=== PATIENT | female | born 1935 | race Caucasian/White ===

== ENCOUNTER → 2019-04-07 | Outpatient (CLI) | payer MEDICARE, BC ==
[2019-04-07 16:35] LABS: ALBUMIN 4.2 g/dL (3.4-4.8)
[2019-04-07 16:37] LABS: TOTAL PROTEIN 7.4 g/dL (6.2-8.1)
[2019-04-07 16:39] LABS: TOTAL BILIRUBIN 0.7 mg/dL (0.2-1.2)
[2019-04-07 17:42] LABS: HEMATOCRIT 37.7 % (37.0-47.0); HEMOGLOBIN 12.2 g/dL (12.5-16.0); MEAN CELL VOLUME 88 fl (78-100); MEAN CORPUSCULAR HEMOGLOBIN 28 pg (27-31); MEAN CORPUSCULAR HGB CONC 32 g/dL (33-37); MEAN PLATELET VOLUME 10.2 fl (7.4-10.4); PLATELET COUNT 237 K/mm3 (130-400); RED CELL DISTRIBUTION WIDTH 12.7 % (11.5-14.5); WHITE BLOOD COUNT 6.6 K/mm3 (4.8-10.8)
[2019-04-07 23:11] LABS: LYMPHOCYTE 32 % (20-51); MONOCYTE 5 % (3-10); NEUTROPHILS 53 % (42-75)
== END ==
LOC: LAB 15:37
PROVIDERS: Family Medicine
DX: Z00.00 Encounter for general adult medical examination without abnormal findings (principal); E78.5 Hyperlipidemia, unspecified; E55.9 Vitamin D deficiency, unspecified

== ENCOUNTER 2019-08-22 18:42 | Emergency (ER) | payer MEDICARE, BC ==
[~2019-08-22] VITALS: Ht 165.1 cm; Wt 70.0 kg
[2019-08-22 19:36] LABS: HEMATOCRIT 39.4 % (37.0-47.0); HEMOGLOBIN 13.3 g/dL (12.5-16.0); MEAN CELL VOLUME 90 fl (78-100); MEAN CORPUSCULAR HEMOGLOBIN 30 pg (27-31); MEAN CORPUSCULAR HGB CONC 34 g/dL (33-37); MEAN PLATELET VOLUME 9.3 fl (7.4-10.4); PLATELET COUNT 193 K/mm3 (130-400); RED CELL DISTRIBUTION WIDTH 12.9 % (11.5-14.5); WHITE BLOOD COUNT 7.1 K/mm3 (4.8-10.8)
[2019-08-22] MEDS ORDERED: CLOPIDOGREL75 M2 PO (19:36)
[2019-08-22] MEDS ORDERED: ATORVASTATIN CA10 MG PO (19:36)
[2019-08-22] MEDS ORDERED: LOSARTAN POTASS50 M1 PO (19:36)
[2019-08-22] MEDS ORDERED: PANTOPRAZOLE SO40 MG PO (19:36)
[2019-08-22] MEDS ORDERED: FAMOTIDINE20 MG PO (19:37)
[2019-08-22] MEDS ORDERED: LABETALOL HCL100 MG PO (19:37)
[2019-08-22 19:46] LABS: ALBUMIN 3.8 g/dL (3.4-4.8)
[2019-08-22 19:47] LABS: CALCIUM 9.4 mg/dL (8.3-10.5)
[2019-08-22 19:49] LABS: TOTAL PROTEIN 6.9 g/dL (6.2-8.1)
[2019-08-22 19:50] LABS: TOTAL BILIRUBIN 0.4 mg/dL (0.2-1.2)
[2019-08-22 19:55] LABS: LYMPHOCYTE 30 % (20-51); MONOCYTE 8 % (3-10); NEUTROPHILS 50 % (42-75)
[2019-08-22] MEDS ORDERED: ASPIRIN 81M81 MG/TA2 PO (19:58)
[2019-08-22 21:12] VITALS: BP 146/84
== END 2019-08-22 21:12 | disposition home or self-care (01) ==
LOC: ED 18:42
PROVIDERS: Family Medicine
DX: G45.9 Transient cerebral ischemic attack, unspecified (principal); I10 Essential (primary) hypertension

== ENCOUNTER → 2020-03-30 | Outpatient (CLI) | payer MEDICARE, BC ==
[2020-01-12 16:24] VITALS: BP 159/84
[~2020-03-30] MED LIST: ASPIRIN 81M81 MG/TA2 PO; ATORVASTATIN CA10 MG PO; CLOPIDOGREL75 M2 PO; FAMOTIDINE20 MG PO; LABETALOL HCL100 MG PO; LOSARTAN POTASS50 M1 PO; PANTOPRAZOLE SO40 MG PO; VITAMIN D325 MC1 PO
[2020-03-30 11:31] LABS: EOS # 0.5 (0.04-0.40); EOS % 8.3 % (1.0-5.0); HEMATOCRIT 36.5 % (37.0-47.0); HEMOGLOBIN 12.2 g/dL (12.5-16.0); LYMPH# 1.4 (1.50-4.00); MEAN CELL VOLUME 90 fl (78-100); MEAN CORPUSCULAR HEMOGLOBIN 30 pg (27-31); MEAN CORPUSCULAR HGB CONC 33 g/dL (33-37); MONO # 0.6 (0.20-0.80); NEU # 3.2 (1.40-6.50); PLATELET COUNT 273 K/mm3 (130-400); RED BLOOD COUNT 4.04 M/mm3 (4.10-5.30); RED CELL DISTRIBUTION WIDTH 12.3 % (11.5-14.5); WHITE BLOOD COUNT 5.8 K/mm3 (4.8-10.8)
[2020-03-30 11:43] LABS: POTASSIUM 3.9 mmol/L (3.5-5.1)
[2020-03-30 11:44] LABS: CALCIUM 9.6 mg/dL (8.3-10.5)
[2020-03-30 11:46] LABS: TOTAL PROTEIN 7.3 g/dL (6.2-8.1)
[2020-03-30 11:48] LABS: TOTAL BILIRUBIN 0.8 mg/dL (0.2-1.2)
== END ==
LOC: LAB 11:11
PROVIDERS: Family Medicine
DX: Z00.00 Encounter for general adult medical examination without abnormal findings (principal); E78.5 Hyperlipidemia, unspecified; E55.9 Vitamin D deficiency, unspecified

== ENCOUNTER → 2020-04-08 | Outpatient (CLI) | payer MEDICARE, BC ==
[2020-01-12 16:24] VITALS: BP 159/84
== END ==
LOC: MAMMO 09:07
DX: Z12.31 Encounter for screening mammogram for malignant neoplasm of breast (principal)

== ENCOUNTER → 2020-09-01 | Outpatient (CLI) | payer MEDICARE, BC ==
[2020-01-12 16:24] VITALS: BP 159/84
[2020-09-01 12:01] LABS: ALBUMIN 4.2 g/dL (3.4-4.8); POTASSIUM 5.2 mmol/L (3.5-5.1)
[2020-09-01 12:02] LABS: CALCIUM 9.8 mg/dL (8.3-10.5)
[2020-09-01 12:04] LABS: TOTAL PROTEIN 7.7 g/dL (6.2-8.1)
[2020-09-01 12:05] LABS: TOTAL BILIRUBIN 0.7 mg/dL (0.2-1.2)
[2020-09-01 12:06] LABS: URINE APPEARANCE CLEAR; URINE BILIRUBIN NEGATIVE (NEGATIVE); URINE BLOOD NEGATIVE (NEGATIVE); URINE COLOR YELLOW; URINE GLUCOSE NEGATIVE (NEGATIVE); URINE KETONE NEGATIVE (NEGATIVE); URINE LEUKOCYTE ESTERASE TRACE (NEGATIVE); URINE NITRATE NEGATIVE (NEGATIVE); URINE PROTEIN(semi-quant) NEGATIVE (NEGATIVE); URINE UROBILINOGEN NORMAL (NORMAL)
== END ==
LOC: LAB 11:27
PROVIDERS: Family Medicine
DX: R10.11 Right upper quadrant pain (principal)

== ENCOUNTER → 2020-09-02 | Outpatient (CLI) | payer MEDICARE, BC ==
[2020-01-12 16:24] VITALS: BP 159/84
== END ==
LOC: RAD 09:54
DX: R10.11 Right upper quadrant pain (principal); Z90.49 Acquired absence of other specified parts of digestive tract
CPT/HCPCS: Q9967

== ENCOUNTER → 2020-10-19 | Outpatient (CLI) | payer MEDICARE, BC ==
[2020-10-19 17:48] LABS: URINE APPEARANCE CLOUDY; URINE BILIRUBIN NEGATIVE (NEGATIVE); URINE BLOOD NEGATIVE (NEGATIVE); URINE COLOR YELLOW; URINE GLUCOSE NEGATIVE (NEGATIVE); URINE KETONE NEGATIVE (NEGATIVE); URINE LEUKOCYTE ESTERASE TRACE (NEGATIVE); URINE NITRATE NEGATIVE (NEGATIVE); URINE PROTEIN(semi-quant) TRACE mg/dL (NEGATIVE); URINE UROBILINOGEN NORMAL (NORMAL)
== END ==
LOC: LAB 15:30
PROVIDERS: Family Medicine
DX: R89.5 Abnormal microbiological findings in specimens from other organs, systems and tissues (principal); N39.0 Urinary tract infection, site not specified

== ENCOUNTER → 2020-11-03 | Outpatient (CLI) | payer MEDICARE, BC | LOC: LAB 10:59 | DX: K59.04 Chronic idiopathic constipation (principal); R68.81 Early satiety ==

== ENCOUNTER → 2021-02-22 | Outpatient (CLI) | payer MEDICARE, BC | LOC: RAD 08:30 | DX: G45.9 Transient cerebral ischemic attack, unspecified (principal) | CPT/HCPCS: A9585 ==

== ENCOUNTER → 2021-02-23 | Outpatient (CLI) | payer MEDICARE, BC | LOC: RAD 02-22 09:30 | DX: I65.23 Occlusion and stenosis of bilateral carotid arteries (principal) ==

== ENCOUNTER → 2021-04-28 | Outpatient (CLI) | payer MEDICARE, BC ==
[2021-04-28 09:17] LABS: ALBUMIN 4.1 g/dL (3.4-4.8)
[2021-04-28 09:19] LABS: TOTAL PROTEIN 7.6 g/dL (6.2-8.1)
[2021-04-28 09:21] LABS: TOTAL BILIRUBIN 0.8 mg/dL (0.2-1.2)
== END ==
LOC: LAB 08:41
PROVIDERS: Internal Medicine Adult Congenital Heart Disease
DX: I10 Essential (primary) hypertension (principal)

== ENCOUNTER → 2021-05-26 | Outpatient (CLI) | payer MEDICARE, BC ==
[2021-05-26 08:07] LABS: ALBUMIN 4.1 g/dL (3.4-4.8); POTASSIUM 4.2 mmol/L (3.5-5.1)
[2021-05-26 08:08] LABS: CALCIUM 9.9 mg/dL (8.3-10.5)
[2021-05-26 08:10] LABS: TOTAL PROTEIN 7.6 g/dL (6.2-8.1)
[2021-05-26 08:11] LABS: TOTAL BILIRUBIN 0.9 mg/dL (0.2-1.2)
[2021-05-26 08:16] LABS: MAGNESIUM 1.9 mg/dL (1.60-2.60)
== END ==
LOC: LAB 07:32
PROVIDERS: Internal Medicine Adult Congenital Heart Disease
DX: E78.2 Mixed hyperlipidemia (principal); I10 Essential (primary) hypertension

== ENCOUNTER → 2021-05-31 | Outpatient (CLI) | payer MEDICARE, BC | LOC: RAD 09:00 → VAS 09:56 | DX: I35.0 Nonrheumatic aortic (valve) stenosis (principal) ==

== ENCOUNTER 2021-07-10 13:11 | Emergency (ER) | payer MEDICARE, BC ==
[~2021-07-10] VITALS: Ht 165.1 cm; Wt 68.0 kg
[2021-07-10 14:12] LABS: BASO # 0.02 K/mm3 (0.02-0.10); EOS # 0.03 K/mm3 (0.04-0.40); EOS % 0.5 % (1.0-5.0); HEMATOCRIT 35.5 % (37.0-47.0); HEMOGLOBIN 12.5 g/dL (12.5-16.0); LYMPH# 1.47 K/mm3 (1.50-4.00); MEAN CELL VOLUME 86 fl (78-100); MEAN CORPUSCULAR HEMOGLOBIN 30 pg (27-31); MEAN CORPUSCULAR HGB CONC 35 g/dL (33-37); MEAN PLATELET VOLUME 9.4 fl (7.4-10.4); MONO # 0.55 K/mm3 (0.20-0.80); NEU # 3.61 K/mm3 (1.40-6.50); PLATELET COUNT 167 K/mm3 (130-400); RED BLOOD COUNT 4.13 M/mm3 (4.10-5.30); RED CELL DISTRIBUTION WIDTH 12.4 % (11.5-14.5); WHITE BLOOD COUNT 5.7 K/mm3 (4.8-10.8)
[2021-07-10 14:22] LABS: ALBUMIN 3.6 g/dL (3.4-4.8); POTASSIUM 3.7 mmol/L (3.5-5.1); SODIUM 125 mmol/L (136-145)
[2021-07-10 14:23] LABS: CALCIUM 9.1 mg/dL (8.3-10.5)
[2021-07-10 14:25] LABS: GLUCOSE 97 mg/dL (65-105); TOTAL PROTEIN 6.8 g/dL (6.2-8.1)
[2021-07-10 14:26] LABS: CARBON DIOXIDE 19 mmol/L (23-31); TOTAL BILIRUBIN 0.9 mg/dL (0.2-1.2)
[2021-07-10 14:30] LABS: AST-SGOT 37 U/L (5-34)
[2021-07-10 14:31] LABS: ALT/SGPT 17 U/L (0-55)
[2021-07-10 14:39] LABS: TROPONIN-I < 0.030 ng/mL (<0.030)
[2021-07-10 19:47] LABS: POTASSIUM 3.1 mmol/L (3.5-5.1)
[2021-07-10 20:26] VITALS: BP 124/78
[2021-07-11 07:25] LABS: URINE APPEARANCE CLEAR; URINE BILIRUBIN NEGATIVE (NEGATIVE); URINE BLOOD NEGATIVE (NEGATIVE); URINE COLOR YELLOW; URINE GLUCOSE NEGATIVE (NEGATIVE); URINE KETONE 1+ (NEGATIVE); URINE LEUKOCYTE ESTERASE TRACE (NEGATIVE); URINE NITRATE NEGATIVE (NEGATIVE); URINE PROTEIN(semi-quant) TRACE (NEGATIVE); URINE UROBILINOGEN NORMAL (NORMAL)
[2021-07-11 07:26] LABS: URINE MUCUS PRESENT (NOT PRESENT)
== END 2021-07-10 20:26 | disposition home or self-care (01) ==
LOC: ED 13:11
PROVIDERS: Family Medicine
DX: R05.9 Cough, unspecified (principal)
CPT/HCPCS: J7030

== ENCOUNTER 2021-07-15 13:32 | Emergency (ER) | payer MEDICARE, BC ==
[~2021-07-15] VITALS: Ht 165.1 cm; Wt 65.8 kg
[2021-07-15 13:51] LABS: BASO # 0.05 K/mm3 (0.02-0.10); EOS # 0.34 K/mm3 (0.04-0.40); EOS % 4.6 % (1.0-5.0); HEMATOCRIT 35.2 % (37.0-47.0); LYMPH# 0.93 K/mm3 (1.50-4.00); MEAN CELL VOLUME 87 fl (78-100); MEAN CORPUSCULAR HEMOGLOBIN 30 pg (27-31); MEAN CORPUSCULAR HGB CONC 34 g/dL (33-37); MEAN PLATELET VOLUME 9.7 fl (7.4-10.4); MONO # 0.56 K/mm3 (0.20-0.80); NEU # 5.54 K/mm3 (1.40-6.50); PLATELET COUNT 242 K/mm3 (130-400); RED BLOOD COUNT 4.07 M/mm3 (4.10-5.30); RED CELL DISTRIBUTION WIDTH 12.2 % (11.5-14.5); WHITE BLOOD COUNT 7.5 K/mm3 (4.8-10.8)
[2021-07-15 14:01] LABS: POTASSIUM 3.7 mmol/L (3.5-5.1); SODIUM 132 mmol/L (136-145)
[2021-07-15 14:02] LABS: CALCIUM 9.3 mg/dL (8.3-10.5)
[2021-07-15 14:03] LABS: GLUCOSE 100 mg/dL (65-105)
[2021-07-15 14:04] LABS: CARBON DIOXIDE 21 mmol/L (23-31)
[2021-07-15] MEDS ORDERED: FAMOTIDINE20 MG PO (14:09)
[2021-07-15] MEDS ORDERED: VALSARTAN160 M1 PO (14:09)
[2021-07-15 14:16] LABS: TROPONIN-I < 0.030 ng/mL (<0.030)
[2021-07-15 16:42] LABS: URINE APPEARANCE CLEAR; URINE BILIRUBIN NEGATIVE (NEGATIVE); URINE BLOOD NEGATIVE (NEGATIVE); URINE COLOR YELLOW; URINE GLUCOSE NEGATIVE (NEGATIVE); URINE KETONE NEGATIVE (NEGATIVE); URINE LEUKOCYTE ESTERASE TRACE (NEGATIVE); URINE NITRATE NEGATIVE (NEGATIVE); URINE PROTEIN(semi-quant) TRACE (NEGATIVE); URINE UROBILINOGEN NORMAL (NORMAL); URINE WBC 0-1 /hpf (0-3)
[2021-07-15 16:43] LABS: URINE MUCUS PRESENT (NOT PRESENT)
[2021-07-15] MEDS ORDERED: MORGIDOX 1X100100 MG PO (16:50)
[2021-07-15] MEDS ORDERED: PREDNISONE20 M1 PO (16:51)
[2021-07-15 17:10] VITALS: BP 154/87
== END 2021-07-15 17:24 | disposition home or self-care (01) ==
LOC: ED 13:32
PROVIDERS: Nurse Practitioner
DX: J10.1 Influenza due to other identified influenza virus with other respiratory manifestations (principal); J40 Bronchitis, not specified as acute or chronic; E87.1 Hypo-osmolality and hyponatremia; E86.0 Dehydration; Z20.822 Contact with and (suspected) exposure to COVID-19
CPT/HCPCS: J0696; J2930; J7030

== ENCOUNTER → 2021-10-27 | Outpatient (RCR) | payer MEDICARE, BC ==
[~2021-10-27] MED LIST changes: +MORGIDOX 1X100100 MG PO; +PREDNISONE20 M1 PO; +VALSARTAN160 M1 PO
== END ==
LOC: PT
DX: R27.8 Other lack of coordination (principal)

== ENCOUNTER 2021-11-04 13:00 | Outpatient (RCR) | payer MEDICARE, BC | END 2021-11-27 | disposition home or self-care (01) | LOC: PT | DX: R27.8 Other lack of coordination (principal) ==

== ENCOUNTER 2021-11-28 07:59 | Outpatient (RCR) | payer MEDICARE, BC | END 2021-12-27 13:45 | disposition home or self-care (01) | LOC: PT 07:59 | DX: R27.8 Other lack of coordination (principal) ==

== ENCOUNTER → 2021-12-08 | Outpatient (CLI) | payer MEDICARE, BC ==
[2021-12-08 10:15] LABS: BASO # 0.05 K/mm3 (0.02-0.10); EOS # 0.65 K/mm3 (0.04-0.40); HEMATOCRIT 41.7 % (37.0-47.0); HEMOGLOBIN 14.1 g/dL (12.5-16.0); LYMPH# 1.78 K/mm3 (1.50-4.00); MEAN CELL VOLUME 88 fl (78-100); MEAN CORPUSCULAR HEMOGLOBIN 30 pg (27-31); MEAN CORPUSCULAR HGB CONC 34 g/dL (33-37); MONO # 0.56 K/mm3 (0.20-0.80); NEU # 3.47 K/mm3 (1.40-6.50); PLATELET COUNT 206 K/mm3 (130-400); RED BLOOD COUNT 4.76 M/mm3 (4.10-5.30); RED CELL DISTRIBUTION WIDTH 11.9 % (11.5-14.5); WHITE BLOOD COUNT 6.5 K/mm3 (4.8-10.8)
[2021-12-08 10:22] LABS: ALBUMIN 4.3 g/dL (3.4-4.8); POTASSIUM 5.2 mmol/L (3.5-5.1); SODIUM 128 mmol/L (136-145)
[2021-12-08 10:23] LABS: CALCIUM 10.2 mg/dL (8.3-10.5)
[2021-12-08 10:24] LABS: GLUCOSE 99 mg/dL (65-105); TOTAL PROTEIN 7.9 g/dL (6.2-8.1)
[2021-12-08 10:25] LABS: CARBON DIOXIDE 21 mmol/L (23-31)
[2021-12-08 10:26] LABS: TOTAL BILIRUBIN 0.8 mg/dL (0.2-1.2)
[2021-12-08 10:30] LABS: AST-SGOT 20 U/L (5-34)
[2021-12-08 10:31] LABS: ALT/SGPT 16 U/L (0-55)
[2021-12-08 10:37] LABS: TROPONIN-I < 0.030 ng/mL (<0.030)
== END ==
LOC: AMSURD 09:41
PROVIDERS: Nurse Practitioner Family
DX: R68.84 Jaw pain (principal)

== ENCOUNTER → 2022-06-13 | Outpatient (CLI) | payer MEDICARE, BC ==
[2022-06-13 16:05] LABS: BASO # 0.03 K/mm3 (0.02-0.10); EOS # 0.47 K/mm3 (0.04-0.40); EOS % 5.1 % (1.0-5.0); HEMATOCRIT 37.5 % (37.0-47.0); HEMOGLOBIN 12.5 g/dL (12.5-16.0); LYMPH# 1.37 K/mm3 (1.50-4.00); MEAN CELL VOLUME 90 fl (78-100); MEAN CORPUSCULAR HEMOGLOBIN 30 pg (27-31); MEAN CORPUSCULAR HGB CONC 33 g/dL (33-37); MEAN PLATELET VOLUME 9.2 fl (7.4-10.4); MONO # 0.65 K/mm3 (0.20-0.80); PLATELET COUNT 186 K/mm3 (130-400); RED BLOOD COUNT 4.15 M/mm3 (4.10-5.30); RED CELL DISTRIBUTION WIDTH 12.5 % (11.5-14.5); WHITE BLOOD COUNT 9.2 K/mm3 (4.8-10.8)
[2022-06-13 16:28] LABS: POTASSIUM 4.1 mmol/L (3.5-5.1)
[2022-06-13 16:29] LABS: CALCIUM 9.4 mg/dL (8.3-10.5)
[2022-06-13 16:32] LABS: TOTAL BILIRUBIN 0.6 mg/dL (0.2-1.2)
== END ==
LOC: LAB 15:52
PROVIDERS: Physician Assistant
DX: I95.1 Orthostatic hypotension (principal); G90.09 Other idiopathic peripheral autonomic neuropathy; R42 Dizziness and giddiness; K90.9 Intestinal malabsorption, unspecified; I10 Essential (primary) hypertension; E78.5 Hyperlipidemia, unspecified; I35.0 Nonrheumatic aortic (valve) stenosis; Z86.73 Personal history of transient ischemic attack (TIA), and cerebral infarction without residual deficits

== ENCOUNTER 2023-03-01 07:51 | Outpatient (RCR) | payer MEDICARE, BC | END 2023-03-29 16:14 | disposition home or self-care (01) | LOC: PT 07:51 | DX: M75.02 Adhesive capsulitis of left shoulder (principal) ==

== ENCOUNTER → 2023-08-30 | Outpatient (CLI) | payer MEDICARE, BC ==
[2023-08-30 14:15] LABS: BASO # 0.02 K/mm3 (0.02-0.10); EOS # 0.51 K/mm3 (0.04-0.40); EOS % 5.8 % (1.0-5.0); HEMATOCRIT 44.2 % (37.0-47.0); HEMOGLOBIN 14.6 g/dL (12.5-16.0); LYMPH# 2.01 K/mm3 (1.50-4.00); MEAN CELL VOLUME 89 fl (78-100); MEAN CORPUSCULAR HEMOGLOBIN 29 pg (27-31); MEAN CORPUSCULAR HGB CONC 33 g/dL (33-37); MEAN PLATELET VOLUME 9.4 fl (7.4-10.4); MONO # 0.74 K/mm3 (0.20-0.80); NEU # 5.56 K/mm3 (1.40-6.50); PLATELET COUNT 207 K/mm3 (130-400); RED BLOOD COUNT 4.99 M/mm3 (4.10-5.30); RED CELL DISTRIBUTION WIDTH 12.8 % (11.5-14.5); WHITE BLOOD COUNT 8.9 K/mm3 (4.8-10.8)
[2023-08-30 14:31] LABS: CALCIUM 9.5 mg/dL (8.3-10.5)
[2023-08-30 14:32] LABS: TOTAL PROTEIN 7.2 g/dL (6.2-8.1)
[2023-08-30 14:34] LABS: TOTAL BILIRUBIN 0.6 mg/dL (0.2-1.2)
== END ==
LOC: LAB 13:51
PROVIDERS: Physician Assistant
DX: Z13.29 Encounter for screening for other suspected endocrine disorder (principal); E78.5 Hyperlipidemia, unspecified; E78.1 Pure hyperglyceridemia; K90.9 Intestinal malabsorption, unspecified